=== PATIENT | male | born 1955 | race Caucasian/White ===

== ENCOUNTER 2019-04-05 11:03 | Outpatient (CLI) | payer MEDICARE, MEDICAID ==
[2019-04-05 12:21] LABS: BASOPHILS # (AUTO) 0.02 x10^3/uL (0-0.1); BASOPHILS % (AUTO) 0 % (0-1); EOSINOPHILS # (AUTO) 0.26 x10^3/uL (0-0.4); EOSINOPHILS % (AUTO) 5 % (1-7); LYMPHOCYTES # (AUTO) 1.44 x10^3/uL (1-3.4); LYMPHOCYTES % (AUTO) 25 % (22-44); MD NO; MEAN CORPUSCULAR HEMOGLOBIN 33.5 pg (27.5-34.5); MEAN CORPUSCULAR HGB CONC 33.2 g/dL (33.2-36.2); MEAN PLATELET VOLUME 7.6 fL (7.4-10.4); MONOCYTES # (AUTO) 0.52 x10^3/uL (0.2-0.8); MONOCYTES % (AUTO) 9 % (2-9); NEUTROPHILS # (AUTO) 3.42 x10^3/uL (1.8-6.8); NEUTROPHILS % (AUTO) 61 % (42-75); PLATELET COUNT 254 x10^3/uL (130-400); RED BLOOD COUNT 4.06 x10^6/uL (4.38-5.82); RED CELL DISTRIBUTION WIDTH 13.5 % (9.4-14.8)
[2019-04-05 12:22] LABS: HCT (SEDRATE) 41.1 % (39.2-51.8)
[2019-04-05 12:30] LABS: INTERNATIONAL NORMALIZED RATIO 1.01 (0.93-1.1); PROTHROMBIN TIME 10.6 Seconds (9.6-11.5)
[2019-04-05 12:31] LABS: ALANINE AMINOTRANSFERASE 18 U/L (12-78); ALBUMIN 3.5 g/dL (3.4-5.0); ANION GAP 7 mmol/L (5-15); CALCIUM 8.4 mg/dL (8.5-10.1); CHLORIDE 112 mmol/L (98-107); CREATININE 0.95 mg/dL (0.7-1.3)
[2019-04-05 12:33] LABS: ALKALINE PHOSPHATASE 85 U/L (45-117); BILIRUBIN,TOTAL 0.4 mg/dL (0.2-1.0); TOTAL PROTEIN 7.1 g/dL (6.4-8.2)
[2019-04-05] MEDS ORDERED: None at this Time (12:53)
[2019-04-05 13:02] LABS: HEMOGLOBIN A1C 5.2 % (4.2-6.3)
== END 2019-04-05 23:59 | disposition home or self-care (01) ==
LOC: STAR 11:03
PROVIDERS: ATTEND Orthopaedic Surgery Orthopaedic Surgery of the Spine
DX: Z01.818 Encounter for other preprocedural examination (principal); J43.9 Emphysema, unspecified; M16.12 Unilateral primary osteoarthritis, left hip
CPT/HCPCS: 36415; 71046; 80053; 83036; 85025; 85610; 85651; 85730; 87081; 87147; 93005

== ENCOUNTER 2019-04-09 06:38 | Outpatient (CLI) | payer MEDICARE, MEDICAID ==
[~2019-04-09] VITALS: Ht 198.1 cm; Wt 112.3 kg
[~2019-04-09 06:38] MED LIST: None at this Time
[2019-04-09] MEDS ORDERED: VANCOMYCIN PMX 1GM/200ML 200 ML IV STA (07:00)
[2019-04-09] MEDS ORDERED: VANCOMYCIN 1,000 MG ONE (07:08)
[2019-04-09] MEDS ORDERED: BUPIVACAINE/PF 0.5% ONE (07:08)
[2019-04-09] MEDS ORDERED: EPINEPHRINE 1 MG/ML, 1ML ONE (07:08)
[2019-04-09] MEDS ORDERED: TRANEXAMIC ACID 100 MG/ML, 10ML ONE (07:08)
[2019-04-09] MEDS ORDERED: THROMBIN (RECOMBINANT) 20,000 UNIT VIAL TP ONE (07:08)
[2019-04-09] MEDS ORDERED: LACTATED RINGERS 1,000 ML IV SCH (07:22)
[2019-04-09 07:23] VITALS: BP 124/82
[2019-04-09] MEDS ORDERED: hydrALAzine 20 MG/ML, 1ML IV PRN (07:30)
[2019-04-09] MEDS ORDERED: HALOPERIDOL 5 MG/ML IV PRN (07:30)
[2019-04-09] MEDS ORDERED: HYDROmorphone 2 MG/ML, 1ML IVPush PRN (07:30)
[2019-04-09] MEDS ORDERED: FENTANYL PF 100 MCG/2ML IV PRN (07:30)
[2019-04-09] MEDS ORDERED: PROMETHAZINE 25 MG/ML, 1ML IV PRN (07:30)
[2019-04-09] MEDS ORDERED: MEPERIDINE/PF 25MG/ML,1ML IVPush PRN (07:30)
[2019-04-09] MEDS ORDERED: ACETAMINOPHEN 500 MG TABLET PO ONE (07:30)
[2019-04-09] MEDS ORDERED: GABAPENTIN 300 MG CAPSULE PO ONE (07:30)
[2019-04-09] MEDS ORDERED: LABETALOL 5MG/ML, 20ML IV PRN (07:30)
[2019-04-09] MEDS ORDERED: OXYcodone 5 MG/5 ML ORAL.SOL UDC PO PRN (07:30)
[2019-04-09 07:35] LABS: AMPHETAMINE SCREEN, URINE Positive (Negative); BARBITURATE SCREEN, URINE Negative (Negative); BENZODIAZEPINE SCREEN, URINE Negative (Negative); CANNABINOID SCREEN, URINE Negative (Negative); COCAINE SCREEN, URINE Negative (Negative); METHADONE SCREEN, URINE Negative (Negative); OPIATE SCREEN, URINE Negative (Negative)
== END 2019-04-09 08:30 | disposition home or self-care (01) ==
LOC: UNDOADMIN 06:38 → OR 06:38 → ORIP 06:38 → UNDODISIN 08:30 → EDSTATUS 08:30 → OR 08:30
PROVIDERS: ATTEND Orthopaedic Surgery Orthopaedic Surgery of the Spine
DX: Z01.818 Encounter for other preprocedural examination (principal); F15.20 Other stimulant dependence, uncomplicated
CPT/HCPCS: 36415; 80307; 86850; 86900; J0171; J3370